=== PATIENT | female | born 1990 | race Hispanic/Latino ===

== ENCOUNTER 2018-08-04 03:16 | Emergency (ER) | payer SELFPAY ==
[2018-08-04] MEDS ORDERED: METHYLPREDNISOLONE 125 MG INJ ONE (03:58)
[2018-08-04] MEDS ORDERED: ALBUTEROL 2.5 MG/3 ML NEB SOL ONE (03:59)
[2018-08-04] MEDS ORDERED: IPRATROPIUM BROM 0.5MG/2.5ML ONE (03:59)
[2018-08-04] MEDS ORDERED: HYDROCODONE/CHLORPHEN 5 ML/OSYR ONE (03:59)
[2018-08-04] MEDS ORDERED: NA CHLORIDE 0.9% 1,000 ML ONE (03:59)
[2018-08-04 04:10] LABS: Absolute Lymphocytes (CBC) 2.5 K/uL (0.7-4.9); Absolute Monocytes 0.7 K/uL (0.1-1.3); Basophils % 0.4 % (0-1.3); Eosinophils % 3.7 % (0-4.4); Hematocrit 39.2 % (36.0-45.0); Lymphocytes % 21.5 % (15.3-44.8); MPV 7.7 fL (7.6-11.3); RBC Red Blood Cell Count 4.61 M/uL (3.86-4.86)
[2018-08-04 04:18] LABS: BUN Blood Urea Nitrogen 10 mg/dL (7-18); Bicarbonate 28 mmol/L (21-32); Glucose Level 112 mg/dL (74-106); Potassium 3.6 mmol/L (3.5-5.1); Sodium Level 140 mmol/L (136-145)
[2018-08-04 04:48] LABS: Urine Bacteria 20-50 /HPF (<20); Urine Culture Reflex Order NOT NEEDED; Urine Mucus MOD /HPF (NONE SEEN); Urine RBC <5 /HPF (NONE SEEN)
--- NOTE | 2018-08-04 04:59 | ER ---
Nurse's Notes [facility] Name: Candelaria Beauchamp Age: 27 yrs Sex: Female : 1990 Arrival Date: 08/04/2018 Time: 03:18 Bed 17 Private MD: Diagnosis: Asthmatic bronchitis. Urinary tract infection Presentation: 08/04 03:31 Presenting complaint: Patient states: I have had a cough and for about a week and a jb4 half, and I have an ear ache and fever that started 2 days ago. I took 800 mg of Motrin at 0200 before coming. Transition of care: patient was not received from another setting of care. Onset of symptoms was July 23, 2018. Risk Assessment: Do you want to hurt yourself or someone else? Patient reports no desire to harm self or others. Initial Sepsis Screen: Does the patient meet any 2 criteria? HR > 90 bpm. Yes Does the patient have a suspected source of infection? No. Patient's initial sepsis screen is negative. Care prior to arrival: None. 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 - Social history:: Smoking status: Patient/guardian denies using tobacco, Patient uses alcohol, occasionally. - Ebola Screening: : No symptoms or risks identified at this time. Screenin:33 Abuse screen: Denies threats or abuse. Denies injuries from another. Nutritional ao screening: No deficits noted. Tuberculosis screening: No symptoms or risk factors identified. Fall Risk None identified. Assessment: 03:27 General: Appears in no apparent distress. comfortable, Behavior is calm, cooperative, ao appropriate for age. Pain: Denies pain. Neuro: Level of Consciousness is awake, alert, obeys commands, Oriented to person, place, time, situation, Appropriate for age Moves all extremities. Full function Speech is normal, Facial symmetry appears normal. Cardiovascular: Capillary refill < 3 seconds Patient's skin is warm and dry. Respiratory: Airway is patent Respiratory effort is even, unlabored, Respiratory pattern is regular, symmetrical. GI: Abdomen is obese. : No signs and/or symptoms were reported regarding the genitourinary system. EENT: No signs and/or symptoms were reported regarding the EENT system. Derm: Skin is moist, Skin is pink, warm \T\ dry. normal. Musculoskeletal: Circulation, motion, and sensation intact. Range of motion: intact in all extremities. 04:37 Reassessment: Patient appears in no apparent distress at this time. Patient and/or jb4 family updated on plan of care and expected duration. Pain level reassessed. Patient is alert, oriented x 3, equal unlabored respirations, skin warm/dry/pink. Vital Signs: 03:34 BP 133 / 101; Pulse 107; Resp 18; Temp 97.5; Pulse Ox 95% on R/A; Weight 102.06 kg; jb4 Height 5 ft. 4 in. (162.56 cm); Pain 6/10; 04:37 BP 111 / 59; Pulse 103; Resp 18; Pulse Ox 100% on Nebulizer Mask; jb4 05:10 BP 100 / 69; Pulse 89; Resp 18; Pulse Ox 99% on R/A; ao 03:34 Body Mass Index 38.62 (102.06 kg, 162.56 cm) jb4 ED Course: 03:18 Patient arrived in ED. am2 03:24 Stanley Soliz MD is Attending Physician. pkl 03:27 Blayne Zarate, RN is Primary Nurse. ao 03:30 Inserted saline lock: 20 gauge in left antecubital area, using aseptic technique. Blood jb4 collected. 03:33 Triage completed. jb4 03:34 Arm band placed on left wrist. jb4 03:58 X-ray completed. Portable x-ray completed in exam room. Patient tolerated procedure kw well. 03:59 XRAY Chest Pa And Lat (2 Views) In Process Unspecified. EDMS 05:13 No provider procedures requiring assistance completed. IV discontinued, intact, jb4 bleeding controlled, No redness/swelling at site. Pressure dressing applied. 05:16 Patient has correct armband on for positive identification. jb4 Administered Medications: 03:50 Drug: Tussionex Pennkinetic ER 5 ml Route: PO; ao 04:36 Follow up: Response: No adverse reaction jb4 04:05 Drug: SOLU-Medrol 125 mg Route: IVP; Site: right antecubital; ao 04:36 Follow up: Response: No adverse reaction jb4 04:05 Drug: Albuterol - atroVENT (3:1) (2.5 mg - 0.5 mg) 3 ml Route: Nebulizer; ao 04:51 Follow up: Response: No adverse reaction jb4 04:06 Drug: NS 0.9% 1000 ml Route: IV; Rate: 125 ml/hr; Site: right antecubital; ao 05:17 Follow up: IV Status: Completed infusion ao 05:17 Follow up: IV Status: Order to discontinue infusion; IV Intake: 300ml ao Intake: 05:17 IV: 300ml; Total: 300ml. ao Outcome: 04:57 Discharge ordered by . [email or web address] 05:15 Discharged to home ambulatory. jb4 05:15 Condition: stable 05:15 Discharge instructions given to patient, Instructed on discharge instructions, follow up and referral plans. Demonstrated understanding of instructions, follow-up care, medications, Prescriptions given X 3. 05:16 Patient left the ED. jb4 Addendum: 08/07/2018 07:48 Addendum: Culture Results: Positive urine culture. No further action required. Bacteria h b sensitive to prescribed antibiotic. Signatures: Dispatcher [employer] EDMS Stanley Soliz MD MD pkl Whitley, Kimberlee kw Ortiz, Alex, RN RN Violetta Carrion RN RN hb Bryson, James, RN RN jb4 Doris Serrano am2 Corrections: (The following items were deleted from the chart) 08/04 03:37 03:31 Presenting complaint: Patient states: I have had a cough and for about a week and jb4 a half, and I have an ear ache and fever that started 2 days ago. jb4
--- NOTE | 2018-08-04 04:59 | EDPHYS ---
Physician Documentation [facility] Name: Candelaria Beauchamp Age: 27 yrs Sex: Female : 1990 Arrival Date: 08/04/2018 Time: 03:18 Bed 17 Private MD: ED Physician Stanley Soliz HPI: 08/04 03:42 This 27 yrs old Female presents to ER via Ambulatory with complaints of Cough, pkl Fever. 03:42 The patient or guardian reports cough, with productive sputum, that is white. Onset: pkl The symptoms/episode began/occurred 10 day(s) ago. Associated signs and symptoms: Pertinent positives: earache, fever, started 2 days ago. 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 - Social history:: Smoking status: Patient/guardian denies using tobacco, Patient uses alcohol, occasionally. - Ebola Screening: : No symptoms or risks identified at this time. ROS: 03:42 Eyes: Negative for injury, pain, redness, and discharge. pkl 03:42 ENT: Positive for ear pain. 03:42 Neck: Negative for stiffness. 03:42 Cardiovascular: Negative for chest pain. 03:42 Respiratory: Negative for cough, wheezing. 03:42 Abdomen/GI: Negative for abdominal pain, nausea, vomiting, and diarrhea. 03:42 Back: Negative for acute changes. 03:42 : Negative for urinary symptoms. 03:42 MS/extremity: Negative for acute changes. 03:42 Skin: Negative for rash. 03:42 Neuro: Negative for altered mental status. Exam: 03:42 Head/Face: Normocephalic, atraumatic. Eyes: Pupils equal round and reactive to light, pkl extra-ocular motions intact. Lids and lashes normal. Conjunctiva and sclera are non-icteric and not injected. Cornea within normal limits. Periorbital areas with no swelling, redness, or edema. ENT: Nares patent. No nasal discharge, no septal abnormalities noted. Tympanic membranes are normal and external auditory canals are clear. Oropharynx with no redness, swelling, or masses, exudates, or evidence of obstruction, uvula midline. Mucous membranes moist. Neck: Trachea midline, no thyromegaly or masses palpated, and no cervical lymphadenopathy. Supple, full range of motion without nuchal rigidity, or vertebral point tenderness. No Meningismus. Chest/axilla: Normal chest wall appearance and motion. Nontender with no deformity. No lesions are appreciated. Cardiovascular: Regular rate and rhythm with a normal S1 and S2. No gallops, murmurs, or rubs. Normal PMI, no JVD. No pulse deficits. 03:42 Respiratory: the patient does not display signs of respiratory distress, Respirations: normal, Breath sounds: bronchial sounds, that are mild, are scattered. 03:42 Abdomen/GI: Bowel sounds: normal, Palpation: abdomen is soft and non-tender, in all quadrants. 03:42 Back: Exam negative for acute changes. 03:42 : Exam negative for acute changes. 03:42 Musculoskeletal/extremity: Exam is negative for acute changes. 03:42 Skin: Exam negative for rash. 03:42 Neuro: Orientation: is normal, Mentation: is normal, Cranial nerves: grossly normal. Vital Signs: 03:34 BP 133 / 101; Pulse 107; Resp 18; Temp 97.5; Pulse Ox 95% on R/A; Weight 102.06 kg; jb4 Height 5 ft. 4 in. (162.56 cm); Pain 6/10; 04:37 BP 111 / 59; Pulse 103; Resp 18; Pulse Ox 100% on Nebulizer Mask; jb4 05:10 BP 100 / 69; Pulse 89; Resp 18; Pulse Ox 99% on R/A; ao 03:34 Body Mass Index 38.62 (102.06 kg, 162.56 cm) jb4 MDM: 03:25 Patient medically screened. pkl 04:56 Data reviewed: vital signs, nurses notes, lab test result(s), radiologic studies, plain pkl films. 08/04 03:41 Order name: CBC with Diff; Complete Time: 04:44 pkl 08/04 03:41 Order name: Chem 7; Complete Time: 04:34 pkl 08/04 03:41 Order name: Flu; Complete Time: 05:00 pkl 08/04 03:41 Order name: Strep; Complete Time: 04:34 pkl 08/04 04:00 Order name: Urine Microscopic Only; Complete Time: 04:49 ao 08/04 04:01 Order name: Urine Culture oe 08/04 03:41 Order name: XRAY Chest Pa And Lat (2 Views) pkl 08/04 04:04 Order name: Urine Dipstick--Ancillary (enter results) ms 08/04 04:04 Order name: Urine --Ancillary (enter results) ms 08/04 04:48 Order name: Throat Culture EDMS 08/04 03:51 Order name: Urine Dipstick-Ancillary (obtain specimen); Complete Time: 03:55 jb4 08/04 03:51 Order name: Urine Test (obtain specimen); Complete Time: 03:55 jb4 Administered Medications: 03:50 Drug: Tussionex Pennkinetic ER 5 ml Route: PO; ao 04:36 Follow up: Response: No adverse reaction jb4 04:05 Drug: SOLU-Medrol 125 mg Route: IVP; Site: right antecubital; ao 04:36 Follow up: Response: No adverse reaction jb4 04:05 Drug: Albuterol - atroVENT (3:1) (2.5 mg - 0.5 mg) 3 ml Route: Nebulizer; ao 04:51 Follow up: Response: No adverse reaction jb4 04:06 Drug: NS 0.9% 1000 ml Route: IV; Rate: 125 ml/hr; Site: right antecubital; ao 05:17 Follow up: IV Status: Completed infusion ao 05:17 Follow up: IV Status: Order to discontinue infusion; IV Intake: 300ml ao Disposition: 08/04/18 04:57 Discharged to Home. Impression: Asthmatic bronchitis. Urinary tract infection. - Condition is Stable. - Prescriptions for Cipro 500 mg Oral Tablet - take 1 tablet by ORAL route every 12 hours for 7 days; 14 tablet. Guaifenesin AC 10- 100 mg/5 mL Oral Liquid - take 10 milliliters by ORAL route every 8 hours As needed; 120 milliliter. Albuterol Sulfate 90 mcg/actuation - inhale 1-2 puff by INHALATION route every 4-6 hours; 1 Inhaler. - Medication Reconciliation Form, Thank You Letter, Antibiotic Education, Prescription Opioid Use, Work release form form. - Follow up: Private Physician; When: 2 - 3 days; Reason: Re-evaluation by your physician. - Problem is new. - Symptoms have improved. Signatures: Dispatcher [employer] Stanley Keyes MD MD pkl Blayne Zarate, RN RN Hector Huang RN RN jb4 Corrections: (The following items were deleted from the chart) 05:16 04:57 08/04/2018 04:57 Discharged to Home. Impression: Asthmatic bronchitis. Urinary jb4 tract infection. Condition is Stable. Forms are Medication Reconciliation Form, Thank You Letter, Antibiotic Education, Prescription Opioid Use. Follow up: Private Physician; When: 2 - 3 days; Reason: Re-evaluation by your physician. Problem is new. Symptoms have improved. pkl
[2018-08-04 08:02] LABS: Urine Blood TRACE (NEG); Urine Glucose NEGATIVE (NEG); Urine Protein NEGATIVE (NEG); Urine pH 5.5 (5.0-7.0)
--- NOTE | 2018-08-04 08:53 | RAD REPORT ---
EXAM DESCRIPTION: RAD - Chest Pa And Lat (2 Views) - 08/04/2018 4:01 am CLINICAL HISTORY: Persistent cough COMPARISON: None. TECHNIQUE: PA and lateral views of the chest were obtained. FINDINGS: The lungs are underinflated. Peribronchial thickening is present with increased interstiti al markings. Minimal focal increased opacification is present in the right upper lung field superimpo sed on the anterior right second rib and in the medial left lung base superimposed on the left-side h eart. Trachea is midline. Heart size is normal and central vasculature is within normal limits. No pleural effusion or pneumothorax seen. No acute bony finding noted. No aortic abnormality. IMPRESSION: Patient shows a mild to moderate viral infiltrate pattern overall. Focal opacification in the medial left base in the upper right lung field are potentially areas of capone perimposed bacterial pneumonia. These can be monitored on subsequent imaging.
== END 2018-08-04 05:16 | disposition home or self-care (01) ==
LOC: ER 03:16
DX: J45.909 Unspecified asthma, uncomplicated (principal); N39.0 Urinary tract infection, site not specified
CPT/HCPCS: 36415; 71046; 80048; 81003; 81015; 81025; 85025; 87070; 87077; 87081; 87086; 87088; 87186; 87804; 94640; 96361; 96374; 99284; J2930; J7030

== ENCOUNTER 2018-09-01 23:08 | Emergency (ER) | payer SELFPAY ==
[2018-09-02 02:37] LABS: Urine Blood NEGATIVE (NEG); Urine Glucose NEGATIVE (NEG); Urine Protein NEGATIVE (NEG); Urine Specific Gravity 1.015 (1.005-1.030)
[2018-09-02 03:07] LABS: Urine Bacteria 20-50 /HPF (<20); Urine Culture Reflex Order REFLEXED; Urine RBC NONE SEEN /HPF (NONE SEEN)
[2018-09-02 03:48] LABS: Urine Specific Gravity 1.015 (1.005-1.030)
--- NOTE | 2018-09-02 05:33 | ER ---
Nurse's Notes [facility] Name: Candelaria Beauchamp Age: 27 yrs Sex: Female : 1990 Arrival Date: 09/01/2018 Time: 23:11 Bed 20 Private MD: Diagnosis: left flank pain;Right intraabdominal mass Presentation: 09/02 01:07 Presenting complaint: Patient states: pt complains of left flank pain that has been tl3 getting worse ove the last two days. Transition of care: patient was not received from another setting of care. Onset of symptoms was August 31, 2018. Risk Assessment: Do you want to hurt yourself or someone else? Patient reports no desire to harm self or others. Initial Sepsis Screen: Does the patient meet any 2 criteria? No. Patient's initial sepsis screen is negative. Does the patient have a suspected source of infection? No. Patient's initial sepsis screen is negative. Care prior to arrival: None. Medication(s) given: on a long course of unknown antibiotics. 01:07 Method Of Arrival: Ambulatory tl3 01:07 Acuity: MARIA L 4 tl3 01:07 Acuity: MARIA L 3 tl3 Triage Assessment: 01:10 General: Appears uncomfortable, well groomed, well developed, well nourished, Behavior tl3 is calm, cooperative, appropriate for age. Pain: Complains of pain in posterior aspect of left lateral abdomen and anterior aspect of left lateral abdomen Pain currently is 9 out of 10 on a pain scale. EENT: No signs and/or symptoms were reported regarding the EENT system. Neuro: Level of Consciousness is awake, alert, obeys commands. Cardiovascular: Patient's skin is warm and dry. Respiratory: Airway is patent is compromised Respiratory effort is even, unlabored, Respiratory pattern is regular, symmetrical. GI: No signs and/or symptoms were reported involving the gastrointestinal system. : No signs and/or symptoms were reported regarding the genitourinary system. Derm: No signs and/or symptoms reported regarding the dermatologic system. Musculoskeletal: Reports pain in posterior aspect of left lateral abdomen and anterior aspect of left lateral abdomen. 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 - Social history:: Smoking status: unknown. - Ebola Screening: : No symptoms or risks identified at this time. Screenin:15 Abuse screen: Denies threats or abuse. Nutritional screening: No deficits noted. tl3 Tuberculosis screening: No symptoms or risk factors identified. Fall Risk No fall in past 12 months (0 pts). Assessment: 01:15 Reassessment: No changes from previously documented assessment. tl3 02:02 General: Appears in no apparent distress. Behavior is calm, cooperative. Pain: ak1 Complains of pain in left flank pain. Neuro: No deficits noted. Cardiovascular: No deficits noted. Respiratory: No deficits noted. GI: No signs and/or symptoms were reported involving the gastrointestinal system. : No signs and/or symptoms were reported regarding the genitourinary system. EENT: No signs and/or symptoms were reported regarding the EENT system. Derm: No signs and/or symptoms reported regarding the dermatologic system. Musculoskeletal: Reports pain in left flank, left side since "a couple of days" pt stated pain is intermittent . 03:25 Reassessment: Patient appears in no apparent distress at this time. No changes from ak1 previously documented assessment. Patient and/or family updated on plan of care and expected duration. Pain level reassessed. Patient is alert, oriented x 3, equal unlabored respirations, skin warm/dry/pink. pt and family informed of wait for CT and results. 04:30 Reassessment: Patient appears in no apparent distress at this time. No changes from ak1 previously documented assessment. Patient and/or family updated on plan of care and expected duration. Pain level reassessed. Patient is alert, oriented x 3, equal unlabored respirations, skin warm/dry/pink. pt and family informed of wait for US tech to arrive for diagnostic. 04:54 Reassessment: US tech at bedside. ak1 Vital Signs: 01:10 BP 133 / 92; Pulse 94; Resp 18; Pulse Ox 99% on R/A; tl3 01:42 Temp 98.6; Weight 99.79 kg (R); fc 03:10 BP 107 / 65; Pulse 93; Resp 18; Temp 98.5; ak1 04:28 BP 118 / 73; Pulse 90; Resp 18; Temp 98.4; Pulse Ox 99% on R/A; ak1 05:05 BP 120 / 82; Pulse 81; Resp 16; Temp 98.; Pulse Ox 99% on R/A; ak1 ED Course: 09/01 23:11 Patient arrived in ED. ds1 09/02 00:44 Jael Messer, RN is Primary Nurse. tl3 01:09 Triage completed. tl3 01:10 Arm band placed on right wrist. tl3 01:15 Bed in low position. Call light in reach. Side rails up X 1. Adult w/ patient. Pulse ox tl3 on. NIBP on. Warm blanket given. 01:15 No provider procedures requiring assistance completed. tl3 02:10 Geremias Montero MD is Attending Physician. ps1 03:33 Stone Protocol In Process Unspecified. EDMS 05:05 Transvaginal Study (probe) In Process Unspecified. EDMS 05:08 Ultrasound completed. Patient tolerated well. aa4 05:32 Carine Henriquez MD is Referral Physician. ps1 05:42 Patient did not have IV access during this emergency room visit. ak1 Administered Medications: No medications were administered Outcome: 05:33 Discharge ordered by . ps1 05:37 Discharged to home ambulatory, with family. ak1 05:37 Condition: good 05:37 Discharge instructions given to patient, family, Instructed on discharge instructions, follow up and referral plans. Demonstrated understanding of instructions, follow-up care. 05:42 Patient left the ED. ak1 Signatures: Dispatcher [employer] EDKalie Parsons RN RN Rosita Michele ds1 Doris Monae aa4 Tiffanie Torres RN RN ak1 Geremias Montero MD MD ps1 Jael Messer, RN RN tl3 Corrections: (The following items were deleted from the chart) 04:30 03:25 Reassessment: Patient appears in no apparent distress at this time. No changes ak1 from previously documented assessment. Patient and/or family updated on plan of care and expected duration. Pain level reassessed. Patient is alert, oriented x 3, equal unlabored respirations, skin warm/dry/pink. ak1
--- NOTE | 2018-09-02 05:33 | EDPHYS ---
Physician Documentation [facility] Name: Candelaria Beauchamp Age: 27 yrs Sex: Female : 1990 Arrival Date: 09/01/2018 Time: 23:11 Bed 20 Private MD: ED Physician Geremias Montero HPI: 09/02 05:36 This 27 yrs old Female presents to ER via Ambulatory with complaints of Side ps1 Pain. 05:36 pain localized to left flank. Non radiating. No fever. Pain rated as moderate. No ps1 medications taken. No urinary complaints. . 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 - Social history:: Smoking status: unknown. - Ebola Screening: : No symptoms or risks identified at this time. ROS: 05:36 Constitutional: Negative for fever, chills, and weight loss, Eyes: Negative for injury, ps1 pain, redness, and discharge, Cardiovascular: Negative for chest pain, palpitations, and edema, Respiratory: Negative for shortness of breath, cough, wheezing, and pleuritic chest pain, Abdomen/GI: Negative for abdominal pain, nausea, vomiting, diarrhea, and constipation, MS/Extremity: Negative for injury and deformity, Skin: Negative for injury, rash, and discoloration, Neuro: Negative for headache, weakness, numbness, tingling, and seizure, Psych: Negative for depression, anxiety, suicide ideation, homicidal ideation, and hallucinations. 05:36 Abdomen/GI: Positive for abdominal pain. 05:36 : Positive for flank pain. Exam: 05:36 Constitutional: This is a well developed, well nourished patient who is awake, alert, ps1 and in no acute distress. Head/Face: Normocephalic, atraumatic. Chest/axilla: Normal chest wall appearance and motion. Nontender with no deformity. No lesions are appreciated. Cardiovascular: Regular rate and rhythm. No gallops, murmurs, or rubs. Normal PMI, no JVD. No pulse deficits. Respiratory: Lungs have equal breath sounds bilaterally, clear to auscultation and percussion. No rales, rhonchi or wheezes noted. No increased work of breathing, no retractions or nasal flaring. Abdomen/GI: Soft, non-tender, with normal bowel sounds. No distension or tympany. No guarding or rebound. No evidence of tenderness throughout. MS/ Extremity: Pulses equal, no cyanosis. Neurovascular intact. Full, normal range of motion. Neuro: Awake and alert, GCS 15, oriented to person, place, time, and situation. Cranial nerves II-XII grossly intact. Sensory grossly intact. Psych: Awake, alert, with orientation to person, place and time. Behavior, mood, and affect are within normal limits. Vital Signs: 01:10 BP 133 / 92; Pulse 94; Resp 18; Pulse Ox 99% on R/A; tl3 01:42 Temp 98.6; Weight 99.79 kg (R); fc 03:10 BP 107 / 65; Pulse 93; Resp 18; Temp 98.5; ak1 04:28 BP 118 / 73; Pulse 90; Resp 18; Temp 98.4; Pulse Ox 99% on R/A; ak1 05:05 BP 120 / 82; Pulse 81; Resp 16; Temp 98.; Pulse Ox 99% on R/A; ak1 MDM: 02:17 Patient medically screened. ps1 05:39 Data reviewed: vital signs, nurses notes, lab test result(s), radiologic studies, CT ps1 scan, ultrasound, and as a result, I will discharge patient. Special discussion: Based on the history and exam findings, there is no indication for further emergent testing or inpatient evaluation. I discussed with the patient/guardian the need to see the OB Gyne specialist for further evaluation of the symptoms. 09/02 01:42 Order name: Urine Microscopic Only; Complete Time: 04:54 fc 09/02 01:47 Order name: Urine Dipstick--Ancillary (enter results); Complete Time: 04:54 ar5 09/02 02:24 Order name: Stone Protocol [facility] 09/02 03:08 Order name: Urine Culture [facility] 09/02 03:23 Order name: Urine --Ancillary (enter results); Complete Time: 04:54 ak1 09/02 03:23 Order name: Urine Test (obtain specimen); Complete Time: 03:23 [facility] 09/02 04:16 Order name: Transvaginal Study (probe) ps1 Administered Medications: No medications were administered Disposition: 09/02/18 05:33 Discharged to Home. Impression: left flank pain, Right intraabdominal mass. - Condition is Stable. - Discharge Instructions: Pelvic Mass. - Work release form, Family Work Release, Medication Reconciliation Form, Thank You Letter, Antibiotic Education, Prescription Opioid Use form. - Follow up: Carine Henriquez MD; When: 1 week; Reason: Further diagnostic work-up, Recheck today's complaints, Re-evaluation by your physician. Follow up: Emergency Department; When: As needed; Reason: Worsening of condition. - Problem is new. - Symptoms are unchanged. Signatures: Dispatcher [employer] EDNC Tiffanie Torres RN RN ak1 Geremias Montero MD MD ps1 Jael Messer RN RN tl3 Corrections: (The following items were deleted from the chart) 02:24 02:20 Abdomen Pelvis Wo Con+CT.RAD.BRZ ordered. [facility] EDNC 05:42 05:33 09/02/2018 05:33 Discharged to Home. Impression: left flank pain; Right ak1 intraabdominal mass. Condition is Stable. Forms are Work release form, Family Work Release, Medication Reconciliation Form, Thank You Letter, Antibiotic Education, Prescription Opioid Use. Follow up: Carine Henriquez; When: 1 week; Reason: Further diagnostic work-up, Recheck today's complaints, Re-evaluation by your physician. Follow up: Emergency Department; When: As needed; Reason: Worsening of condition. Problem is new. Symptoms are unchanged. ps1
--- NOTE | 2018-09-02 09:12 | RAD REPORT ---
EXAM DESCRIPTION: CT - Stone Protocol - 09/02/2018 4:40 am CLINICAL HISTORY: Left upper abdomen and left flank pain for 2-3 days A preliminary report was provided at the time of the study and reviewed prior to final report. COMPARISON: None. TECHNIQUE: Axial 5 mm thick images were obtained without oral or IV contrast. The [id number] span s the entirety of the system including uppermost abdomen and lung bases. All CT scans are performed using dose optimization technique as appropriate and may include automated exposure control or mA/KV adjustment according to patient size. FINDINGS: No hydronephrosis is present and no obstructing ureteral calculi. No suspicious renal mass es. Isodense masses and pyelonephritis are not excluded on a stone protocol CT scan. No urinary bladd er suspicious finding. Uterus and left ovary are normal. In the right lower pelvis there is an 8 x 6 centimeter homogeneous fluid attenuation thin-walled mass. No associated mass, calcification or soft tissue nodule. Imaged portions of the liver, spleen and pancreas show no suspicious findings on non-contrast imaging . No gallbladder or biliary tree abnormality identified. No significant adrenal finding. No suspicious bowel findings. Appendix is normal. No hernia, mass or bulky lymphadenopathy noted. No free air, free fluid or inflammatory stranding. No significant bony abnormality. IMPRESSION: No abnormality seen to explain left-sided abdominal or flank pain. Isodense masses and pyelonephritis are not excluded on stone protocol technique. An 8 x 6 cm thin-walled cystic mass in the right lower pelvis is present. This is most likely large r ight ovarian cyst or possible cystadenoma. No characteristics to elevate likelihood of cystadenocarci noma.
--- NOTE | 2018-09-02 09:15 | RAD REPORT ---
EXAM DESCRIPTION: US - Transvaginal Study Probe - 09/02/2018 5:06 am CLINICAL HISTORY: Pelvic mass, left-sided pain COMPARISON: CT study September 02 TECHNIQUE: Endovaginal sonography was performed. FINDINGS: Endometrial stripe is 7 mm in thickness. No endometrial mass or polyp. Uterus is 6.9 x 3.3 x 3.4 cm. No myometrial mass identified. Left ovary was not identifiable at sonography. Left ovary was visualized on the CT study and shows no suspicious finding. Right ovary measures 3.0 x 1.9 x 1.8 cm. At the superior margin of the right ovary there is a 8.3 x 6 .6 centimeter thin-walled homogeneous anechoic cyst. No septation, mural nodule or calcification comp onent. No free fluid. IMPRESSION: Right ovarian or paraovarian 8 x 6 cm thin-walled uncomplicated cystic mass. This may be an unusually large but functional ovarian cyst. Cystadenoma would also be a primary consi deration. Cystadenocarcinoma is unlikely. If there is no immediate intervention contemplated, follow-up sonography in 3- 4 months could be perf ormed to monitor for involution or growth.
== END 2018-09-02 05:42 | disposition home or self-care (01) ==
LOC: ER 23:08
DX: R19.09 Other intra-abdominal and pelvic swelling, mass and lump (principal)
CPT/HCPCS: 74176; 76377; 76830; 81003; 81015; 81025; 87077; 87086; 87088; 87186; 99283